=== PATIENT | female | born 1970 | race Two or more races ===

== ENCOUNTER → 2016-06-23 | Emergency (ER) | payer MEDICARE, MEDICAID ==
[~2016-06-23] VITALS: Ht 152.4 cm; Wt 83.9 kg
[~2016-06-23] MED LIST: ASPI81TA2 PO; ATOR10TA PO; BACL10TA PO; BROM1.7D9 EACHEYE; IV NS 0.9% 1,000 ML BAG IV ONE; IV NS 0.9% 1,000 ML ONE; IV SET PRIMARY 1 EA INFUS.SET MC ONE; KETO15CR TP; LANS30CA56 PO; METF500T4 PO
[2016-06-23 13:00] LABS: BASOPHILS # (AUTO) 0.3 /CMM (0.0-0.2); BASOPHILS % (AUTO) 2.9 % (0.0-2.0); DIFF TOTAL % 100 %; EOSINOPHILS # (AUTO) 0.1 /CMM (0.0-0.7); EOSINOPHILS % (AUTO) 0.5 % (0.0-6.0); HEMATOCRIT 47 % (33-45); HEMOGLOBIN 15.7 g/dL (11.5-14.8); LYMPHOCYTES % (AUTO) 16.5 % (20.0-44.0); MEAN CORPUSCULAR HEMOGLOBIN 30 PG (26.0-33.0); MEAN CORPUSCULAR HGB CONC 33 g/dl (31.0-36.0); MEAN CORPUSCULAR VOLUME 91 fL (82-100); MONOCYTES # (AUTO) 0.7 /CMM (0.1-1.30); MONOCYTES % (AUTO) 5.7 % (2.0-12.0); NEUTROPHILS # (AUTO) 8.7 /CMM (1.8-8.9); NEUTROPHILS % (AUTO) 74.4 % (43.0-81.0); PLATELET COUNT (AUTO) 323 /CMM (150-450); RED BLOOD CELL COUNT(AUTO) 5.18 MIL/uL (4.0-5.2); WHITE BLOOD COUNT (AUTO) 11.8 K/uL (4.3-11.0)
[2016-06-23 13:10] LABS: ANION GAP 9 (5-14); CALCIUM, SERUM 8.3 mg/dL (8.5-10.1); CARBON DIOXIDE 33 mmol/L (21-32); CHLORIDE 103 mmol/L (98-107); CREATININE 0.6 mg/dL (0.6-1.3); GFR 108 mL/min (>60); GLUCOSE 97 mg/dL (74-106); POTASSIUM 3.9 mmol/L (3.5-5.1); SODIUM SERUM 141 mmol/L (136-145); UREA NITROGEN, BLOOD 14 mg/dL (7-18)
[2016-06-23 13:14] LABS: PROTHROMBIN TIME 10.5 SECS (9.5-12.7)
[2016-06-23 13:16] LABS: ALANINE AMINOTRANSFERASE 32 U/L (12-78); ALBUMIN 3.5 g/dL (3.4-5.0); ASPARTATE AMINOTRANSFERASE 15 U/L (15-37); BILIRUBIN,DIRECT 0.1 mg/dL (0.0-0.2); BILIRUBIN,TOTAL 0.5 mg/dL (0.2-1.0); INDIRECT BILIRUBIN 0.4 mg/dL (0.0-1.1); TOTAL PROTEIN, SERUM 6.9 g/dL (6.4-8.2)
[2016-06-23 13:18] LABS: TROPONIN I < 0.017 ng/mL (0.00-0.056)
[2016-06-23 13:24] LABS: KETONES,URINE Negative (NEGATIVE); LEUKOCYTE ESTERASE ,URINE Negative (NEGATIVE); PH,URINE 7.5 (5.0-8.0)
[2016-06-23 13:29] LABS: ADD UA MICROSCOPIC YES
[2016-06-23 13:44] LABS: LACTIC ACID 1.1 mmol/L (0.4-2.0)
[2016-06-23 13:44] LABS: ADD URINE CULTURE NO; MUCUS,URINE Moderate /LPF (None Seen); WBC,URINE NONE SEEN /HPF (0-3)
[2016-06-23 17:19] VITALS: BP 122/65
== END | disposition home or self-care (01) ==
LOC: ER 12:00
DX: M62.81 Muscle weakness (generalized) (principal); G91.9 Hydrocephalus, unspecified; G81.94 Hemiplegia, unspecified affecting left nondominant side; G95.0 Syringomyelia and syringobulbia; E86.0 Dehydration; R51 Headache; R79.1 Abnormal coagulation profile; E11.9 Type 2 diabetes mellitus without complications; Z86.73 Personal history of transient ischemic attack (TIA), and cerebral infarction without residual deficits; Z88.8 Allergy status to other drugs, medicaments and biological substances; Z79.82 Long term (current) use of aspirin; Z98.2 Presence of cerebrospinal fluid drainage device
CPT/HCPCS: 36415; 70450; 71010; 80048; 80076; 81001; 83605; 84484; 85025; 85730; 87040 ×2; 93005; 99285; A4606; J7030; 81000-TC; Z7610